=== PATIENT | female | born 1965 | race Caucasian/White ===

== ENCOUNTER → 2019-01-02 | Day surgery (SDC) | payer OTHER ==
[~2019-01-02] MED LIST: IODINE1 GM PO; MIDAZOLAM HCL 2 MG/2 ML VIAL ONE; MULTI-VITAMIN1 EACH PO; NP THYROID30 MG PO; PROPOFOL IV EMULSION 10 MG/ML 50 ML VIAL ONE; TRIAMTERENE-HCTZ1 EA PO; XANAX0.5 MG PO; [UNRECOGNIZED DRUG - OTHER]
[2019-01-02 16:20] VITALS: BP 105/78
--- NOTE | 2019-01-02 22:08 | Operative Report ---
DATE OF PROCEDURE: 01/02/2019 SURGEON: Gregory Gama MD PROCEDURE: EGD with biopsies. INDICATIONS FOR EGD: Heartburn, indigestion, previous history of peptic ulcer disease. MEDICATION: The patient was done under MAC, please see anesthesiologist's note. PROCEDURE IN DETAIL: With the patient in left lateral decubitus position, a flexible fiberoptic Olympus gastroscope was introduced into the esophagus under direct visualization without any difficulty. A submucosal nodule was noted in the cervical esophagus, and was biopsied. There were some patchy erythema noted in the distal esophagus and the scope was then advanced with ease into the stomach. Mucosa overlying the antrum and the body revealed some patchy erythema and [id number] edema and biopsies were obtained and sent to stain for H pylori. Pylorus was of normal contour and shape, it was intubated with ease and the scope was advanced all the way to the second portion of the duodenum. Biopsies were obtained from the second portion and the duodenal bulb to rule out sprue. The scope was then withdrawn back into the stomach and retroflexed. Mucosa overlying the fundus and the cardia appeared to be within normal limits. The scope was then straightened out, it was subsequently withdrawn. The patient tolerated the procedure well. IMPRESSION: 1. Submucosal nodule, cervical esophagus, biopsied. 2. Distal esophagitis. 3. Gastritis, biopsied. Biopsies sent to stain for Helicobacter pylori. 4. Rule out sprue. PLAN: Follow up histology. Initiate Protonix 40 mg one p.o. q.a.m. before meals. Gregory Gama MD [facility] [place] /[id number] cc: Urban Lal MD
== END | disposition home or self-care (01) ==
LOC: OR 11:11
PROVIDERS: ATTEND Internal Medicine Gastroenterology
DX: R10.10 Upper abdominal pain, unspecified (principal); K21.0 Gastro-esophageal reflux disease with esophagitis; K29.70 Gastritis, unspecified, without bleeding; R12 Heartburn; R14.0 Abdominal distension (gaseous); Z01.810 Encounter for preprocedural cardiovascular examination; Z88.5 Allergy status to narcotic agent; Z88.2 Allergy status to sulfonamides; E03.8 Other specified hypothyroidism; E03.9 Hypothyroidism, unspecified; F41.9 Anxiety disorder, unspecified; Z96.641 Presence of right artificial hip joint; Z87.11 Personal history of peptic ulcer disease; K59.09 Other constipation; I10 Essential (primary) hypertension; Z68.33 Body mass index [BMI] 33.0-33.9, adult
CPT/HCPCS: 43239; 93005; J2250; J2704